=== PATIENT | male | born 1975 | race Caucasian/White ===

== ENCOUNTER 2020-08-02 18:51 | Emergency (ER) | payer OTHER ==
[2020-08-02] MEDS ORDERED: ZITHROMAX500 MG PO (20:52)
[2020-08-02] MEDS ORDERED: IBUPROFEN800 MG PO (20:52)
[2020-08-02] MEDS ORDERED: MEDROL DOSEPAK 24 MG PO (20:52)
== END 2020-08-02 21:32 | disposition home or self-care (01) ==
LOC: ER1 18:51
DX: U07.1 COVID-19 (principal); F17.290 Nicotine dependence, other tobacco product, uncomplicated
CPT/HCPCS: 99284; J1885; U0002

== ENCOUNTER 2020-10-05 02:33 | Emergency (ER) | payer OTHER ==
[~2020-10-05 02:33] MED LIST: IBUPROFEN800 MG PO; MEDROL DOSEPAK 24 MG PO; ZITHROMAX500 MG PO
[2020-10-05 03:56] LABS: HEMOGLOBIN 13.6 gm/dl (14.0-17.5); RED BLOOD COUNT 4.48 M/UL (4.20-5.50); WHITE BLOOD COUNT 8.5 K/UL (4.5-11.0)
[2020-10-05 04:19] LABS: BUN/CREATININE RATIO 21 (0-10)
[2020-10-05] MEDS ORDERED: ASPIRIN CHEWABL81 MG PO (08:43)
[2020-10-05] MEDS ORDERED: NITROSTAT0.4 MG SL (08:43)
== END 2020-10-05 09:16 | disposition home or self-care (01) ==
LOC: ER1 02:33
PROVIDERS: Family Medicine
DX: R07.9 Chest pain, unspecified (principal); E87.6 Hypokalemia; F17.290 Nicotine dependence, other tobacco product, uncomplicated
CPT/HCPCS: 71045; 80053; 82550; 82553; 83874; 84484; 85025; 93005; 99285